=== PATIENT | male | born 1995 | race Caucasian/White ===

== ENCOUNTER 2017-12-12 14:05 | Emergency (ER) | payer BC, SELFPAY ==
[2017-12-12 14:07] VITALS: BP 142/100; PULSE 85; RESP 14; O2SAT 97; BMI 22.6
[2017-12-12 15:13] VITALS: BP 124/69; PULSE 87; RESP 18; O2SAT 98
[2017-12-12 15:18] LABS: Basophils % 0.3 % (0.1-2.0); Eosinophils # 0.2 K/mm3 (0.0-0.4); Eosinophils % 2.1 % (0.1-12.0); Hemoglobin 14.7 g/dL (14.1-18.0); Lymphocytes # 1.4 K/mm3 (0.7-4.5); Lymphocytes % 14.2 K/mm3 (10-50); Mean Corpuscular HGB Conc 32.7 g/dL (31.8-35.4); Mean Corpuscular Hemoglobin 30.6 pg (27.0-31.2); Mean Corpuscular Volume 93.5 fl (80-94); Mean Platelet Volume 7.6 fl (7.4-10.4); Monocytes # 0.4 K/mm3 (0.1-1.0); Monocytes % 4.6 % (1.7-9.3); Neutrophils # 7.5 K/mm3 (1.8-7.8); Neutrophils % 78.8 % (37.0-80.0); Platelet Count 283 K/mm3 (142-424); Red Blood Count 4.81 M/mm3 (4.60-6.20); Red Cell Distribution Width 12.9 % (11.5-17.5); White Blood Count 9.5 K/mm3 (4.8-10.8)
[2017-12-12 15:33] LABS: Alanine Aminotransferase 23 U/L (12-78); Albumin Level 4.1 gm/dL (3.4-5.0); Albumin/Globulin Ratio 1.3 (1.1-1.8); Alkaline Phosphatase 77 U/L (46-116); Anion Gap 12.4 mEq/L (5-15); Aspartate Amino Transferase 15 U/L (15-37); Bilirubin,Total 0.3 mg/dL (0.2-1.0); Blood Urea Nitrogen 8 mg/dL (7-18); Carbon Dioxide 29 mmol/L (21.0-32.0); Chloride 105 mmol/L (98-107); Creatinine Clearance Estimated 118 mL/min (0-300); Creatinine,Serum 0.88 mg/dL (0.70-1.30); Estimated Glomerular Filt Rate 108 ml/min (>60); GFR (African American) 131 ML/MIN (>60); Globulin 3.1 gm/dl (1.3-3.2); Glucose 93 mg/dL (74-106); Potassium 4.4 mmoL/L (3.5-5.1); Sodium 142 mmol/L (136-145); Total Protein,Serum 7.2 gm/dL (6.4-8.2)
--- NOTE | 2017-12-12 15:36 | CT_ITS ---
CT head/brain wo con Ordering Physician: Donovan Funk MD Patient Age: 22 years: Male HISTORY: Seizures. Headache. Pain for head, December after seizure TECHNIQUE: Routine axial images for brain followed by additional post-processing axial bone window images. Axial CT scanning From the base of the skull through the vertex to evaluate the brain was performed COMPARISON :March 18, 2016 CT head without contrast FINDINGS No mass lesion. No mass effect. No subdural collection. Ventricles appear normal. No hemorrhage. No territorial infarct. No significant change since March 21, 2016 CT head without contrast. CT bone windows. of ethmoid sinusitis. Generous mucosal thickening throughout ethmoid air cells extends to the junction with frontal sinuses minor mucosal thickening at sphenoid sinuses. Maxillary sinuses not included. Orbits unremarkable.. Mastoid air cells and middle air appear normal and clear IACs unremarkable. IMPRESSION: No acute intracranial findings Negative noncontrast CT scan of the brain.No change since March 2016 Moderately pronounced diffuse ethmoid sinusitis incidentally noted
[2017-12-12 16:00] VITALS: BP 116/72; PULSE 86; RESP 14; O2SAT 98
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
[2017-12-12 17:49] VITALS: BP 116/65; PULSE 74; RESP 16; TEMP 36.7; O2SAT 98
== END 2017-12-12 17:51 | disposition home or self-care (01) ==
PROVIDERS: Emergency Provider Emergency Medicine
DX: G40.89 Other seizures (principal); J01.20 Acute ethmoidal sinusitis, unspecified; F17.210 Nicotine dependence, cigarettes, uncomplicated
CPT/HCPCS: 70450; 80053; 85025; 99284

== ENCOUNTER 2021-02-01 20:13 | Emergency (ER) | payer BC, SELFPAY ==
[2021-02-01 20:27] VITALS: BP 125/83; PULSE 105; RESP 18; TEMP 37.3; O2SAT 100; BMI 25.0
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
[2021-02-01 23:15] VITALS: BP 132/82; PULSE 92; RESP 18; TEMP 37.3; O2SAT 97
== END 2021-02-01 23:17 | disposition home or self-care (01) ==
PROVIDERS: Emergency Provider Emergency Medicine; PCP Emergency Medicine
DX: S91.211A Laceration without foreign body of right great toe with damage to nail, initial encounter (principal); S92.421B Displaced fracture of distal phalanx of right great toe, initial encounter for open fracture; W22.8XXA Striking against or struck by other objects, initial encounter; Y93.55 Activity, bike riding; Y92.89 Other specified places as the place of occurrence of the external cause; F17.210 Nicotine dependence, cigarettes, uncomplicated
CPT/HCPCS: 12001; 29515; 73590; 73610; 73630; 73700; 99282

== ENCOUNTER → 2021-03-10 10:21 | Outpatient (CLI) | payer SELFPAY ==
--- NOTE | 2021-03-10 10:36 | XR_ITS ---
PROCEDURE: XR FOOT WT BEARING RT 3V CLINICAL INDICATION: right foot injury follow up COMPARISON: CR XR FOOT RT MIN 3V from 02/01/[address] FOOT RT WO CON from 02/01/2021 FINDINGS: Fracture of the plantar surface of the distal phalanx of the great toe is once again noted with mild separation of the fracture fragments by approximately 3 mm. Bandage artifact is present at the great toe distally with soft tissue laceration. Possible small avulsion injury along the talonavicular joint anteriorly as before. The joint spaces are well-preserved. No significant degenerative/arthritic changes. No erosive changes evident. Other findings:None. IMPRESSION: Overall no change in the fracture along the plantar and distal aspect of the great toe with possible avulsion fracture at the talonavicular joint Dictated by: Jose Manuel Chang MD 03/10/2021 12:18 Jose Manuel Chang MD in [facility] 03/10/2021 12:18
== END ==
PROVIDERS: PCP Emergency Medicine; Visit Provider Nurse Practitioner
DX: S92.911A Unspecified fracture of right toe(s), initial encounter for closed fracture (principal)
CPT/HCPCS: 73630; 87070; 87205

== ENCOUNTER → 2021-11-17 10:23 | Outpatient (CLI) | payer OTHER, SELFPAY ==
--- NOTE | 2021-11-17 10:30 | XR_ITS ---
FINAL REPORT CLINICAL HISTORY: follow up on fracture, cast present, prior imaging done at [facility] FINDINGS: RIGHT WRIST Three views demonstrate were obtained. An overlying cast obscures the bony detail. There appears to be a fracture involving the medial distal radius. There appears to be intra-articular extension of the fracture line with some callus formation. There is about 2 mm of offset at the fracture line. The soft tissues are unremarkable. IMPRESSION: Distal radius fracture as described. Follow-up out of cast could better display the fracture. Reviewed, Interpreted and Dictated by Tolu Garza MD Transcribed by Cherise Carolina Authenticated by Tolu Garza MD on 11/17/2021 12:13:19 PM [facility]
== END ==
PROVIDERS: PCP Emergency Medicine; Visit Provider Nurse Practitioner Obstetrics & Gynecology
DX: S62.101A Fracture of unspecified carpal bone, right wrist, initial encounter for closed fracture (principal)
CPT/HCPCS: 73110

== ENCOUNTER → 2022-03-01 09:23 | Outpatient (CLI) | payer OTHER, SELFPAY ==
[2022-03-01 19:47] LABS: Amphetamine/Metha Screen,Urine Negative ng/ml (<1000); Barbiturates Screen,Urine Negative ng/ml (<200)
[2022-03-01 19:49] LABS: Benzodiazepines Screen,Urine Negative ng/ml (<200)
[2022-03-01 19:50] LABS: Cannabinoid Screen,Urine Positive ng/ml (<50); Cocaine Screen,Urine Negative ng/ml (<300)
[2022-03-01 19:51] LABS: Methadone Screen,Urine Negative ng/ml (<300); Opiate Screen,Urine Negative ng/ml (<300)
[2022-03-01 19:52] LABS: Phencyclidine Screen,Urine Negative ng/ml (<25)
== END ==
LOC: LAB.DROPOF 03-13 09:24
PROVIDERS: Visit Provider Emergency Medicine
DX: Z79.899 Other long term (current) drug therapy (principal)
CPT/HCPCS: 80305

== ENCOUNTER 2022-04-07 16:24 | Emergency (ER) | payer OTHER, SELFPAY ==
[2022-04-07 16:25] VITALS: BP 137/95; PULSE 90; RESP 20; TEMP 36.4; O2SAT 98; BMI 22.8
--- NOTE | 2022-04-07 16:29 | PC.NURSE ---
Father and Byron REYNOSO are at BS
--- NOTE | 2022-04-07 16:31 | PC.NURSE ---
GRACY Woo at BS
--- NOTE | 2022-04-07 16:40 | PC.NURSE ---
pt family at BS
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
--- NOTE | 2022-04-07 16:43 | PC.NURSE ---
pt vomitted x1 episode. notified ER
[2022-04-07 16:48] VITALS: BMI 22.8
[2022-04-07 16:49] LABS: POC Glucose,Bedside 189 (70-110)
--- NOTE | 2022-04-07 16:52 | ECG_ITS ---
APPROVED REPORT Exam: Resting ECG HR:96 bpm ECG Measurements Heart Rate 96 AXES [place] 109 P 77 QRSd 98 QRS 81 QT 362 T 46 QTc 416 Conclusion SINUS RHYTHM WITH SHORT [place] INTERVAL Left atrial abnormality Consider WPW BORDERLINE ECG UNCONFIRMED REPORT Electronically signed by : Gaston King MD 04/09/2022 10:32:55
[2022-04-07 17:01] VITALS: BP 136/79; PULSE 86; O2SAT 99
--- NOTE | 2022-04-07 17:01 | PC.NURSE ---
Rad at bedside
[2022-04-07 17:08] VITALS: BP 137/95; PULSE 118; O2SAT 98
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
--- NOTE | 2022-04-07 17:33 | PC.NURSE ---
pt to CT
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
[2022-04-07 17:41] LABS: Basophils # 0.2 K/mm3 (0-0.2); Eosinophils # 0.1 K/mm3 (0.0-0.4); Hematocrit 50.7 % (42.0-52.0); Hemoglobin 17.2 g/dL (14.1-18.0); Lymphocytes # 1.3 K/mm3 (0.7-4.5); Lymphocytes % 8.8 % (10-50); Mean Corpuscular HGB Conc 33.9 g/dL (31.8-35.4); Mean Corpuscular Hemoglobin 31.1 pg (27.0-31.2); Mean Corpuscular Volume 91.8 fl (80-94); Mean Platelet Volume 8.2 fl (7.4-10.4); Monocytes # 0.6 K/mm3 (0.1-1.0); Monocytes % 4.5 % (1.7-9.3); Neutrophils # 12.2 K/mm3 (1.8-7.8); Neutrophils % 84.7 % (37.0-80.0); Platelet Count 406 K/mm3 (142-424); Red Blood Count 5.53 M/mm3 (4.60-6.20); Red Cell Distribution Width 14.8 % (11.5-17.5); White Blood Count 14.4 K/mm3 (4.8-10.8)
[2022-04-07 17:42] LABS: Alanine Aminotransferase 34 U/L (12-78); Albumin/Globulin Ratio 1.5 (1.1-1.8); Alkaline Phosphatase 192 U/L (38-126); Anion Gap 18.5 mEq/L (5-15); Aspartate Amino Transferase 38 U/L (17-59); Bilirubin,Total 1.2 mg/dl (0.2-1.3); Blood Urea Nitrogen 9 mg/dl (9-20); Calcium 10.4 mg/dl (8.4-10.2); Carbon Dioxide 22 mmol/L (22.0-30.0); Chloride 102 mmol/L (98-107); Creatinine Clearance Estimated 83 mL/min (50-200); Estimated Glomerular Filt Rate 67 ml/min (>60); GFR (African American) 81 ML/MIN (>60); Globulin 3.4 g/dL (1.3-3.2); Glucose 148 mg/dl (74-100); Lipase 76 U/L (23-300); Potassium 3.5 mmoL/L (3.5-5.1); Sodium 139 mmol/L (136-145); Total Protein,Serum 8.4 g/dl (6.3-8.2)
--- NOTE | 2022-04-07 17:42 | PC.NURSE ---
pt return from CT
--- NOTE | 2022-04-07 17:44 | PC.NURSE ---
shift change report given to margie keane and emilyrn
--- NOTE | 2022-04-07 17:44 | PC.NURSE ---
pt sitting up on the side of the bed drinking powerade.
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
[2022-04-07 18:32] VITALS: BP 131/80; PULSE 102; RESP 20; TEMP 36.4; O2SAT 99
== END 2022-04-07 18:33 | disposition home or self-care (01) ==
PROVIDERS: Emergency Provider Student in an Organized Health Care Education/Training Program; PCP Emergency Medicine
DX: S00.03XA Contusion of scalp, initial encounter (principal); S70.02XA Contusion of left hip, initial encounter; S70.01XA Contusion of right hip, initial encounter; V89.0XXA Person injured in unspecified motor-vehicle accident, nontraffic, initial encounter; Y92.488 Other paved roadways as the place of occurrence of the external cause
CPT/HCPCS: 36415; 70450; 71045; 72125; 72170; 80053; 82962; 83690; 85025; 93005; 96374; 96375; 99284; J2405

== ENCOUNTER → 2023-05-19 17:04 | Outpatient (CLI) | payer MEDICAID, SELFPAY ==
[2023-05-19 17:51] LABS: Barbiturates Screen,Urine Negative ng/ml (<200)
[2023-05-19 17:52] LABS: Amphetamine/Metha Screen,Urine Negative ng/ml (<1000); Benzodiazepines Screen,Urine Negative ng/ml (<200)
[2023-05-19 17:53] LABS: Cannabinoid Screen,Urine Positive ng/ml (<50); Methadone Screen,Urine Negative ng/ml (<300)
[2023-05-19 17:54] LABS: Cocaine Screen,Urine Negative ng/ml (<300)
[2023-05-19 17:55] LABS: Opiate Screen,Urine Negative ng/ml (<300); Phencyclidine Screen,Urine Negative ng/ml (<25)
== END ==
PROVIDERS: PCP Emergency Medicine; Visit Provider Nurse Practitioner Family
DX: F41.9 Anxiety disorder, unspecified (principal)
CPT/HCPCS: 80305

== ENCOUNTER → 2023-05-28 19:27 | Outpatient (CLI) | payer MEDICAID, SELFPAY ==
[2023-05-28 20:20] LABS: Barbiturates Screen,Urine Negative ng/ml (<200)
[2023-05-28 20:21] LABS: Amphetamine/Metha Screen,Urine Negative ng/ml (<1000); Benzodiazepines Screen,Urine Negative ng/ml (<200)
[2023-05-28 20:22] LABS: Cannabinoid Screen,Urine Negative ng/ml (<50)
[2023-05-28 20:23] LABS: Cocaine Screen,Urine Negative ng/ml (<300); Methadone Screen,Urine Negative ng/ml (<300)
[2023-05-28 20:24] LABS: Opiate Screen,Urine Negative ng/ml (<300)
[2023-05-28 20:25] LABS: Phencyclidine Screen,Urine Negative ng/ml (<25)
== END ==
PROVIDERS: PCP Emergency Medicine; Visit Provider Nurse Practitioner
DX: F41.9 Anxiety disorder, unspecified (principal)
CPT/HCPCS: 80305

== ENCOUNTER 2024-07-19 09:23 | Emergency (ER) | payer MEDICAID, SELFPAY ==
[2024-07-19 09:30] VITALS: BP 136/88; PULSE 99; RESP 20; TEMP 36.4; O2SAT 98; BMI 24.3
--- NOTE | 2024-07-19 09:46 | ED_ITS ---
Discharge Plan Disposition Patient Disposition: Home, Self-Care Condition: Good Prescriptions Prescriptions: New benzonatate 100 mg capsule 100 mg PO TID PRN (Reason: cough) Qty: 30 0RF fluticasone propionate [Flonase Allergy Relief] 50 mcg/actuation spra y,suspension 2 spray intranasal DAILY Qty: 16 0RF Rx Instructions: administer into each nostril daily azithromycin [Zithromax Z-Frank] 250 mg tablet See Rx Instructions .ROUTE .COMPLEX 5 Days Qty: 6 0RF Rx Instructions: For 250 mg dose pack: take 500 mg today (day 1), then 250 mg for 4 days (days 2-5) guaifenesin [Mucinex] 600 mg tablet extended release 12hr 600 mg PO BID PRN (Reason: cough) Qty: 20 0RF ondansetron 4 mg tablet,disintegrating 4 mg PO Q8H PRN (Reason: nausea and vomiting) Qty: 10 0RF Referrals Follow up/Referrals: Jimbo Grubbs DO [Primary Care Provider] - See instructions Activity Restrictions/Add. Instructions Additional Instructions/Restrictions: *Monitor Temp, Over the counter Motrin or Tylenol as directed/as needed Tylenol every 4 hours and Motrin every 6 hours (as long as your family doctor has told you that you can take it) for fever or pain. and straight to ER if unable to lo wer temp less than 101.0 after medication given *Warm salt water gargles may help to soothe the throat *Throat Lozenges? *Warm fluids like tea with honey may help to soothe the throat? *Sleep elevated *Humidifier/Vaporizer *Flonase 2 sprays in each nostril daily but be aware that it may take 2-3 days before you notice improvement Take medication as prescribed Your throat swab was sent for culture. Those results are typically sent to your primary care. Be sure to follow up in 2-3 days with your family doctor/primary care physician if no improvement so they can review those result and treat if necessary. If you don?t have a primary care doctor, I recommend you get one but in the mean time, you will have to return to a walk in clinic Follow up IMMEDIATELY for new or worsening symptoms or no Noticeable improvement over the next 48-72 hours. 911 for difficulty breathing or swallowing You were tested for today for COVID19 your test result should be back in the next 24 hours, you may check your results on the [facility] My Health Portal Clinical Impressions Clinical Impression: Sinusitis Stand Alone Forms Stand Alone Forms: Work/School Release Instructions Patient Instructions: Sinusitis, DI for Sinusitis Print Language Print Language: [place] Discharge ED Provider: Carolynn Mark [facility] HPI General Stated complaint: dizzy, soa, weakness Mode of Arrival: Ambulatory Source of Information: Patient Limitations: No Limitations Time Seen by Provider: 07/19/24 09:46 Description of Symptoms (Recalled from Triage Doc. by RN): PATIENT C/O NOT SLEEPING, DECREASED APPETITE, SOA, WEAKNESS, DIZZINESS, COUGH AND SORE THROAT X 3 DAYS HEENT Symptoms (Recalled from RN notes): Yes Resp Symptoms (Recalled from RN notes): Yes Skin Symptoms (Recalled from RN notes): No MS Symptoms (Recalled from RN notes): No Functional Status (Recalled from RN notes): WNL History of Present Illness Provider Complaint: Patient states that he hasnt felt well for the last 3-4 days states he has been feeling achy, sinus congestion and pressure, not sleeping well, feeling SOA at times, weakness, dizziness, cough and sore throat States today he was still not feeling any better so he came in to get checked Related Data Previous Rx's ?Medication ?Instructions ?Recorded azithromycin 250 mg tablet See Rx Instructions PO .COMPLEX 5 07/19/24 (Zithromax Z-Frank) days #6 tabs benzonatate 100 mg capsule 100 mg PO TID PRN cough #30 caps 07/19/24 fluticasone propionate 50 2 spray intranasal DAILY #16 grams 07/19/24 mcg/actuation nasal spray,suspension (Flonase Allergy Relief) guaifenesin 600 mg tablet, 600 mg PO BID PRN cough #20 tabs 07/19/24 extended release 12 hr (Mucinex) ondansetron 4 mg disintegrating 4 mg PO Q8H PRN nausea and 07/19/24 tablet vomiting #10 tabs Allergies Allergy/AdvReac Type Severity Reaction Status Date / Time No Known Allergies Allergy Verified 08/24/23 15:34 Worker's Comp Is this a Worker's Comp case?: No [facility] Disclaimer: The information contained in this section may have been updated after the patient was seen, as this information can be updated by other users. Medical History (Updated 07/19/24 @ 10:02 by Carolynn Mark APRN) Anxiety Seizure disorder Hearing loss Tinnitus of both ears Recurrent otitis media of both ears Alcohol abuse Major depressive disorder Surgical History (Updated 07/19/24 @ 09:57 by Nida Morrell RN) History of spinal fusion History of brain surgery Social History Smoking Status: Current every day smoker tobacco type: cigarettes packs per day: 1 second hand exposure: No alcohol intake: current alcohol intake frequency: 0-2 drinks per day counseling given: Yes counseling provided: provider counseling and support program substance use type: marijuana current occupational status: employed and unemployed Travel in the last 8 weeks: None adopted: No caregiver/support person: No foster care: No household members: none housing: house lives independently: Yes marital status: single number of children: 0 education level: high school service: No assisted: No pets and animals: Yes Hx Recent Travel: No physical activity: none working smoke detector in home: Yes fire extinguisher in home: No carbon monox detector in home: No firearms in home: No (parents took these out recently) ROS Obtained: Yes All systems reviewed & no additional complaints except as documented and Yes Systems reviewed as appropriate & no additional complaints except as documented Constitutional Constitutional: Reports system reviewed and no additional complaints, except as documented, Reports as per HPI, Reports body ache, Reports chills, Reports fatigue and Reports poor appetite ENT Ears, Nose, Mouth, and Throat: Reports system reviewed and no additional complaints, except as documented, Reports as per HPI, Reports nasal congestion, Reports sinus pressure and Reports sore throat Cardiovascular Cardiovascular: Reports system reviewed and no additional complaints, except as documented and Reports as per HPI Respiratory Respiratory: Reports system reviewed and no additional complaints, except as doc umented, Reports as per HPI, Reports shortness of breath (at times) and Reports cough Gastrointestinal Gastrointestingal: Reports system reviewed and no additional complaints, except as documented, as per HPI and nausea Endocrine Endocrine: Reports fatigue Physical Exam General General appearance: alert and in no apparent distress ENT ENT exam: Present mucous membranes moist Expanded ENT Exam Nose exam: Present sinus tenderness (reports tenderness with palpation) Throat exam: Present other (Pharyngeal erythema noted with PND) Respiratory Respiratory exam: Present normal lung sounds bilaterally; Absent respiratory distress or wheezes Cardiovascular Cardiovascular exam: Present regular rate, normal rhythm and normal heart sounds Abdominal Exam Abdominal exam: Present soft and normal bowel sounds; Absent distention or tenderness Neurological Exam Neurological exam: Present alert, oriented X3 and normal gait Medical Decision Making Wally Inquiry Pt receiving controlled substance: No Wally was queried for this patient: No Vital Signs: 07/19/24 09:30 Temperature 97.6 F Temperature Source Oral Pulse Rate [Left Brachial] 99 H Respiratory Rate 20 Blood Pressure [Left Arm] 136/88 Blood Pressure Mean [Left Arm] 104 Blood Pressure Source [Left Arm] Automatic Cuff Blood Pressure Position [Left Arm] Sitting 02 Sat by Pulse Oximetry 98 Oxygen Delivery Method Room Air Lab Data Lab results reviewed: Yes I reviewed the patient's lab results. Orders (Tests/Meds): ORDERS Category Date Time Status Covid-19 Nasal PCR ([facility]) Routine Lab 07/19/24 09:41 Ordered
[2024-07-19 09:50] LABS: UTC Strep Screen (Rapid) Negative (Negative)
[2024-07-19 10:00] LABS: Influenza A, PCR Not Detected (NotDetected); Influenza B, PCR Not Detected (NotDetected)
[2024-07-19 10:02] VITALS: BP 136/88; PULSE 99; RESP 20; TEMP 36.4; O2SAT 98
[2024-07-19 11:01] LABS: Coronavirus 19, PCR Detected (NotDetected)
== END 2024-07-19 10:07 | disposition home or self-care (01) ==
PROVIDERS: Emergency Provider Nurse Practitioner; PCP Internal Medicine
DX: U07.1 COVID-19 (principal); J01.90 Acute sinusitis, unspecified; R05.9 Cough, unspecified; R07.0 Pain in throat
CPT/HCPCS: 87636; 87880; 99204; 99212; G0463